=== PATIENT | male | born 1940 | race Caucasian/White ===

== ENCOUNTER 2023-10-04 00:03 | Emergency (ER) | payer OTHER ==
[~2023-10-04] VITALS: Ht 175.2 cm; Wt 71.7 kg
== END 2023-10-04 01:32 | disposition home or self-care (01) ==
LOC: ED 00:03
DX: K94.23 Gastrostomy malfunction (principal); Y83.8 Other surgical procedures as the cause of abnormal reaction of the patient, or of later complication, without mention of misadventure at the time of the procedure; Y82.8 Other medical devices associated with adverse incidents

== ENCOUNTER 2023-11-09 10:21 | Emergency (ER) | payer OTHER ==
[~2023-11-09] VITALS: Ht 175.2 cm; Wt 77.1 kg
[2023-11-09 11:26] LABS: HEMATOCRIT 24.5 % (42.0-52.0); MEAN CELL VOLUME 96.5 fl (80.0-94.0); MEAN CORPUSCULAR HGB 32.7 pg (27.0-31.0); MEAN CORPUSCULAR HGB CONC 33.9 g/dl (33.0-37.0); MEAN PLATELET VOLUME 9.3 fl (9.6-12.3); PLATELET COUNT AUTOMATED 172 10*3/uL (130-400); RED BLOOD COUNT 2.54 10*6/uL (4.50-5.90); RED CELL DISTRI WIDTH 16.3 % (0-14.5); WHITE BLOOD COUNT 6.3 10*3/uL (4.8-10.8)
[2023-11-09 11:37] LABS: MANUAL DIFF REFLEX YES
[2023-11-09 11:48] LABS: ALKALINE PHOSPHATASE 66 U/L (46-116); ATYPICAL LYMPHS 1 % (0-0); BUN 22 mg/dl (9-23); BURR CELLS FEW; CHLORIDE 106 mmol/L (98-107); DOHLE BODIES FEW; OVALOCYTES FEW; PLATELET SUFFICIENCY NORMAL (NORMAL); POLYCHROMASIA SLIGHT; POTASSIUM 4.5 mmol/L (3.4-5.1); SGPT/ALT 12 U/L (5-49); TOTAL CELLS COUNTED 100 #CELLS; TOTAL PROTEIN 5.7 gm/dL (6.0-8.0); TOXIC GRANULATION SLIGHT
== END 2023-11-09 13:49 | disposition home or self-care (01) ==
LOC: ED 10:21
PROVIDERS: Internal Medicine
DX: E83.42 Hypomagnesemia (principal); R19.7 Diarrhea, unspecified; E86.0 Dehydration